=== PATIENT | male | born 1985 | race Caucasian/White ===

== ENCOUNTER 2017-04-03 23:38 | Emergency (ER) | payer SELFPAY ==
[2017-04-04 01:08] VITALS: BP 136/78
== END 2017-04-04 01:08 | disposition home or self-care (01) ==
LOC: ED 23:38
DX: N39.0 Urinary tract infection, site not specified (principal); K42.9 Umbilical hernia without obstruction or gangrene; L80 Vitiligo; F17.210 Nicotine dependence, cigarettes, uncomplicated
CPT/HCPCS: 82962; 99406; J1885

== ENCOUNTER 2019-01-05 01:50 | Emergency (ER) | payer SELFPAY ==
[~2019-01-05] VITALS: Ht 172.7 cm; Wt 110.2 kg
[2019-01-05 01:59] VITALS: BP 129/92; Ht 172.7 cm; Wt 110.2 kg
== END 2019-01-05 03:20 | disposition home or self-care (01) ==
LOC: ED 01:50
DX: S93.601A Unspecified sprain of right foot, initial encounter (principal); F17.210 Nicotine dependence, cigarettes, uncomplicated; X50.1XXA Overexertion from prolonged static or awkward postures, initial encounter; Y93.89 Activity, other specified; Y92.89 Other specified places as the place of occurrence of the external cause; Y99.8 Other external cause status
CPT/HCPCS: Q0092

== ENCOUNTER 2019-08-10 03:39 | Emergency (ER) | payer SELFPAY ==
[~2019-08-10] VITALS: Ht 167.6 cm; Wt 79.4 kg
[2019-08-10 03:43] VITALS: Ht 167.6 cm; Wt 79.4 kg
[2019-08-10 05:40] VITALS: BP 139/70
== END 2019-08-10 05:40 | disposition home or self-care (01) ==
LOC: ED 03:39
DX: N34.2 Other urethritis (principal)
CPT/HCPCS: 87491; 87591; Q0092